=== PATIENT | female | born 1970 | race Caucasian/White ===

== ENCOUNTER 2020-01-29 07:53 | Outpatient (CLI) | payer BC, SELFPAY ==
--- NOTE | 2020-01-29 08:01 | MM_ITS ---
WS: [id number] BILATERAL DIGITAL SCREENING MAMMOGRAPHY WITH CAD CLINICAL INFORMATION: SCREENING HISTORY: Left breast lump COMPARISON: December 04, 2017 TECHNIQUE: Bilateral CC and MLO views. FINDINGS: Scattered fibroglandular densities bilaterally. No suspicious focal mass, asymmetry, calcifications, or architectural distortion. Palpable marker lower inner quadrant left breast. No mammographic abnorm alities. Recommend spot compression views and ultrasound of PALPABLE abnormality. No mammographic abnormalities right breast. MM/[id number] IMPRESSION: BI-RADS: 0-Incomplete: Need additional imaging evaluation FOLLOW UP: Need Additional Imaging
== END 2020-01-29 07:54 | disposition home or self-care (01) ==
LOC: RADSHAW 07:59
PROVIDERS: Family Provider Electrodiagnostic Medicine; PCP Electrodiagnostic Medicine; Visit Provider Electrodiagnostic Medicine
DX: Z12.31 Encounter for screening mammogram for malignant neoplasm of breast (principal)
CPT/HCPCS: 77067

== ENCOUNTER 2020-02-11 08:56 | Outpatient (CLI) | payer BC, SELFPAY ==
--- NOTE | 2020-02-11 08:58 | US_ITS ---
WS: [id number] LEFT DIGITAL MAMMOGRAPHY WITH CAD CLINICAL INFORMATION: LT BREAST MASS COMPARISON: January 29, 2020 TECHNIQUE: 3 views of the left breast were obtained. FINDINGS: Scattered fibroglandular densities of the left breast. Palpable marker lower inner left breast. No fo candice mammographic normality. Ultrasound is pending. ULTRASOUND BREAST LEFT TECHNIQUE: Ultrasound left breast focused area of concern. CLINICAL INFORMATION: LT BREAST MASS COMPARISON: None. FINDINGS: Ultrasound left breast 6:00 position 6 cm from the nipple. No evidence of cystic or solid lesions. N o abnormalities in the area of concern. No lesions to target for biopsy. US/US breast LT limited* [id number] IMPRESSION: BI-RADS: 2-Benign FOLLOW UP: 1 Year Follow-up Recommend return to annual screening mammography. Additional management of the palpable abnormality should be based on clinical g rounds.
== END 2020-02-11 08:57 | disposition home or self-care (01) ==
LOC: RADSHAW 08:56
PROVIDERS: Family Provider Electrodiagnostic Medicine; PCP Electrodiagnostic Medicine; Visit Provider Electrodiagnostic Medicine
DX: N63.24 Unspecified lump in the left breast, lower inner quadrant (principal)
CPT/HCPCS: 76642; 77065

== ENCOUNTER 2020-03-24 00:41 | Emergency (ER) | payer BC, SELFPAY ==
[2020-03-24 00:55] VITALS: BP 156/92; PULSE 73; RESP 18; TEMP 36.3; O2SAT 96; BMI 50.3
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
[2020-03-24 01:26] VITALS: BP 133/87; PULSE 69; RESP 18; O2SAT 94
== END 2020-03-24 01:26 | disposition home or self-care (01) ==
PROVIDERS: Emergency Provider Nurse Practitioner Family; Family Provider Electrodiagnostic Medicine; PCP Electrodiagnostic Medicine
DX: S00.03XA Contusion of scalp, initial encounter (principal); W22.8XXA Striking against or struck by other objects, initial encounter; Z79.01 Long term (current) use of anticoagulants
CPT/HCPCS: 12345; 99281

== ENCOUNTER 2021-07-12 15:27 | Outpatient (CLI) | payer OTHER, SELFPAY ==
--- NOTE | 2021-07-12 15:48 | MM_ITS ---
WS: [id number] BILATERAL SCREENING DIGITAL MAMMOGRAM WITH CAD HISTORY: SCREENING COMPARISON: 02/11/2020, 01/29/2020 and 12/04/2017 Bilateral CC and MLO views submitted. Computer aided detection analyzed. Breast composition: There are scattered areas of fibroglandular density. No suspicious masses, microc alcifications or architectural distortion. Benign calcifications in each breast. MM/[place] [id number] IMPRESSION: BI-RADS: 2-Benign FOLLOW UP: 1 Year Follow-up
== END 2021-07-12 15:28 | disposition home or self-care (01) ==
PROVIDERS: PCP Electrodiagnostic Medicine; Visit Provider Electrodiagnostic Medicine
DX: Z12.31 Encounter for screening mammogram for malignant neoplasm of breast (principal)
CPT/HCPCS: 77067

== ENCOUNTER 2021-08-04 12:00 | Outpatient (CLI) | payer OTHER, SELFPAY | END 2021-08-04 12:01 | disposition home or self-care (01) | LOC: SLEEP 08-08 09:14 | PROVIDERS: PCP Electrodiagnostic Medicine; Visit Provider Electrodiagnostic Medicine | DX: G47.33 Obstructive sleep apnea (adult) (pediatric) (principal) | CPT/HCPCS: G0399 ==

== ENCOUNTER 2022-08-24 14:42 | Outpatient (CLI) | payer OTHER, SELFPAY ==
--- NOTE | 2022-08-24 14:48 | MM_ITS ---
WS: [id number] BILATERAL 3D TOMOSYNTHESIS DIGITAL SCREENING MAMMOGRAM WITH CAD CLINICAL INFORMATION: SCREENING HISTORY: Screening mammogram. No current complaints. COMPARISON: July 12, 2021 TECHNIQUE: Bilateral CC and MLO views. FINDINGS: Fatty-replaced breasts bilaterally. No suspicious focal mass, asymmetry, calcifications, or senior business architect ural distortion. No evidence of malignancy. Incidental punctate calcifications. MM/[place] [id number] IMPRESSION: BI-RADS: 2-Benign FOLLOW UP: 1 Year Follow-up Recommend return to annual screening mammography.
== END 2022-08-24 14:43 | disposition home or self-care (01) ==
LOC: RAD 14:43
PROVIDERS: PCP Electrodiagnostic Medicine; Visit Provider Electrodiagnostic Medicine
DX: Z12.31 Encounter for screening mammogram for malignant neoplasm of breast (principal)
CPT/HCPCS: 77063; 77067

== ENCOUNTER → 2022-10-11 13:13 | Outpatient (BNVA) | payer OTHER, SELFPAY | PROVIDERS: PCP Electrodiagnostic Medicine; Visit Provider Emergency Medicine | DX: S49.91XA Unspecified injury of right shoulder and upper arm, initial encounter (principal); X58.XXXA Exposure to other specified factors, initial encounter; M19.011 Primary osteoarthritis, right shoulder | CPT/HCPCS: 73020 ==

== ENCOUNTER 2023-09-10 07:56 | Outpatient (CLI) | payer OTHER, SELFPAY ==
--- NOTE | 2023-09-10 08:14 | MM_ITS ---
WS: [id number] BILATERAL SCREENING DIGITAL TOMOSYNTHESIS MAMMOGRAM WITH CAD HISTORY: SCREENING COMPARISON: 08/24/2022 and 07/12/2021 Bilateral CC and MLO views with tomosynthesis and synthetic mammography submitted. Computer aided det ection analyzed. Breast composition: There are scattered areas of fibroglandular density. No suspicious masses, microc alcifications or architectural distortion. Benign calcifications within each breast. IMPRESSION: MM/[place] [id number] BI-RADS: 2-Benign FOLLOW UP: 1 Year Follow-up
== END 2023-09-10 07:57 | disposition home or self-care (01) ==
PROVIDERS: PCP Electrodiagnostic Medicine; Visit Provider Electrodiagnostic Medicine
DX: Z12.31 Encounter for screening mammogram for malignant neoplasm of breast (principal)
CPT/HCPCS: 77063; 77067

== ENCOUNTER 2025-06-12 12:53 | Outpatient (CLI) | payer OTHER, SELFPAY ==
--- NOTE | 2025-06-12 13:03 | MM_ITS ---
WS: [id number] BILATERAL 3D TOMOSYNTHESIS DIGITAL SCREENING MAMMOGRAPHY WITH CAD CLINICAL INFORMATION: SCREENING HISTORY: Screening mammogram. No current complaints. COMPARISON: 2022 TECHNIQUE: Bilateral CC and MLO views. FINDINGS: Scattered fibroglandular densities bilaterally. No suspicious focal mass, asymmetry, calcifications, or architectural distortion. No evidence of malignancy. Few tiny incidental punctate calcifications. MM/MM scr tomosynthesis [id number] IMPRESSION: DENSITY: There are scattered areas of fibroglandular density. BI-RADS: 2 - Benign. FOLLOW UP: 1 Year Follow-up Recommend return to annual screening mammography.
== END 2025-06-12 12:54 | disposition home or self-care (01) ==
PROVIDERS: PCP Electrodiagnostic Medicine; Visit Provider Electrodiagnostic Medicine
DX: Z12.31 Encounter for screening mammogram for malignant neoplasm of breast (principal); R92.323 Mammographic fibroglandular density, bilateral breasts; R92.1 Mammographic calcification found on diagnostic imaging of breast
CPT/HCPCS: 77063; 77067